=== PATIENT | male | born 1960 | race Caucasian/White ===

== ENCOUNTER 2019-03-01 20:02 | Emergency (ER) | payer OTHER ==
[~2019-03-01] VITALS: Ht 177.8 cm; Wt 85.1 kg
[2019-03-01 20:28] VITALS: Ht 177.8 cm; Wt 85.1 kg
--- NOTE | 2019-03-01 21:40 | ERD ---
ER Documentation Chief Complaint Chief Complaint RAT BITE TO RIGHT FOREARM REDNESS/SWELLING HPI This is a 59-year-old male who presents emergency department with complaints of left forearm rat-bite that happened at around 3 PM today while at home. Denies headache, head injury, loss of consciousness, dizziness, neck pain, neck stiffness, throat pain, difficulty swallowing, difficulty breathing lying flat, shoulder pain, chest pain, back pain, abdominal pain, nausea, vomiting, constipation, diarrhea, urinary symptoms, loss of bowel and bladder control, trauma, injury, falls, difficulty walking due to pain, numbness or tingling sensation, calf pain, recent travel, recent major surgery in the last 3 weeks, calf pain, recent long travel, recent exposure to any illness, recent antibiotic use in the last 3 months, fever, chills, seizures. Past medical history: Prediabetes. Medication: Metformin. Surgical history: Social: Denies smoking, use of alcoholic beverages, use of illegal drugs. ROS All systems reviewed and are negative except as per history of present illness. Medications Home Meds Active Scripts Omeprazole* (Omeprazole*) 40 Mg Capsule.dr, 40 MG PO DAILY, #30 CAP Prov:PASILABANCHASEAR F 03/01/19 Amoxicillin/Potassium Clav (Amox-Clav 875-125 mg Tablet) 875-125 mg Tab, 1 TAB PO BID for 10 Days, #20 TAB Prov:ИВАНILABANCHASEAR F 03/01/19 Ibuprofen* (Motrin*) 800 Mg Tab, 800 MG PO Q8 PRN for PAIN AND OR ELEVATED TEMP, #30 TAB Prov:CHASE OSHEAAR F 03/01/19 PMhx/Soc Medical and Surgical Hx: pt denies Surgical Hx History of Surgery: No Anesthesia Reaction: No Hx Neurological Disorder: No Hx Respiratory Disorders: No Hx Cardiac Disorders: No Hx Psychiatric Problems: No Hx Miscellaneous Medical Probl: No Hx Alcohol Use: No Hx Substance Use: No Hx Tobacco Use: No Physical Exam Vitals Physical Exam Const: No acute distress Head: Atraumatic Eyes: Normal Conjunctiva ENT: Normal External Ears, Nose and Mouth. Bilateral jaw: No rigidity. No tenderness. No sardonic grin. No signs of tenderness. Neck: Full range of motion. No meningismus. Resp: Clear to auscultation bilaterally Cardio: Regular rate and rhythm, no murmurs Abd: Soft, non tender, non distended. Normal bowel sounds Skin: No petechiae or rashes Back: No midline or flank tenderness Ext: No cyanosis, or edema. Dorsal area of the left forearm has a swelling measuring approximately 2 centimeter in diameter. Left elbow is unremarkable. Left wrist is unremarkable. Left radial pulse is within normal limits. Has good and full function of his left hand. Capillary refills to left upper extremity is less than 2 seconds. Neur: Awake and alert. No neurological deficit. Psych: Normal Mood and Affect Results 24 hrs Current Medications Medications Dose Sig/Monique Start Time Status Last (Trade) Ordered Route PRN Stop Time Admin Dose Reason Admin Diphtheria/ 0.5 ml ONCE ONCE 03/01/19 DC 03/01/19 Tetanus/Acell IM* 22:00 23:01 Pertussis 03/01/19 22:01 (Adacel) 1 tab ONCE ONCE 03/01/19 DC 03/01/19 Acetaminophen PO 22:00 23:02 / 03/01/19 22:01 Hydrocodone Bitart (Morgan (5/325)) 875 mg ONCE ONCE 03/02/19 DC 03/02/19 Amoxicillin/ PO 00:00 00:04 Clavulanate 03/02/19 00:01 Potassium (Augmentin) Procedures/MDM Diagnostic tests: X-ray of the left forearm: Unremarkable images of the left forearm. This case was discussed with my supervising physician, Javier Reynaga who agreed my medical decision making. Treatment: Adacel IM. Morgan p.o. Augmentin. Re-evaluation: No neurovascular deficits. No neurological deficit. Differential diagnosis I have low suspicion for open fracture, retained foreign body, compartment syndrome, deep space infection, sepsis. Final diagnosis: Animal bite. Prescription: Augmentin. Motrin. Follow-up with PCP in the next 24-48 hours. Come back here in the emergency department for any new symptoms or any worsening symptoms. All questions and concerns were answered. Patient and family members verbalized understanding and agreed with plan of care. Hemodynamically stable on discharge. Departure Diagnosis: Primary Impression: Bite by animal Additional Impression: Bite wound Condition: Stable Additional Instructions: Follow-up with PCP in the next 24-48 hours. Come back here in the emergency department for any new symptoms or any worsening symptoms. THANIA OSHEA March 01, 2019 21:40
[2019-03-01] MEDS ORDERED: HYDROCODONE/APAP (5/325) TAB PO ONE (22:00)
[2019-03-01] MEDS ORDERED: DIPHTH/TET/ACEL PERTUSS (ADULT) 0.5 ML VIAL IM* ONE (22:00)
[2019-03-01] MEDS ORDERED: AMOX1TAB10 PO (23:50)
[2019-03-01] MEDS ORDERED: IBUP800T48 PO (23:50)
[2019-03-01] MEDS ORDERED: OMEP40CA6 PO (23:51)
[2019-03-02] MEDS ORDERED: AMOXICILLIN/CLAV 875 MG TAB PO ONE
[2019-03-02 00:14] VITALS: BP 115/71; PULSE 50; RESP 18
== END 2019-03-02 00:15 | disposition home or self-care (01) ==
LOC: FTE 20:02
DX: S51.851A Open bite of right forearm, initial encounter (principal); W53.11XA Bitten by rat, initial encounter; Y92.009 Unspecified place in unspecified non-institutional (private) residence as the place of occurrence of the external cause; Z23 Encounter for immunization
CPT/HCPCS: 73090; 90471; 90715; Z7502; Z7610